=== PATIENT | male | born 1940 | race Caucasian/White ===

== ENCOUNTER 2024-10-16 04:29 | Inpatient (IN) ==
[2024-10-16 06:43] LABS: Activated Partial Thrombo Time 29.7 seconds (26.0-38.0); INR 1.26 (0.85-1.14)
[2024-10-16 06:49] LABS: Hematocrit 25.9 % (38-53); Mean Corpuscular Hemoglobin 22.8 pg (27-33); Mean Corpuscular Hgb Conc 30.8 g/dL (31-36); Mean Corpuscular Volume 74.2 fL (80-97); Red Blood Count 3.49 10^6/uL (4.06-5.63); Red Cell Distribution Width 16.6 % (12-17); White Blood Count 15.6 10^3/uL (3.6-10.2)
[2024-10-16] MEDS: Albuterol/Ipratropium NEB.SOL (2.5/0.5 MG) 3 ML NEB.SOLN INH ONE (06:49)
[2024-10-16 06:58] LABS: High Sens Troponin Baseline 1101 pg/mL (<20)
[2024-10-16 07:23] LABS: Mean Platelet Volume 6.9 fL (7.5-11.2); Platelet Count 653 10^3/uL (150-450)
[2024-10-16 07:24] LABS: ABS Basophils 0.1 10^3/uL (0.0-0.1); ABS Lymphocytes 1.2 10^3/uL (1.0-4.8); ABS Monocytes 0.4 10^3/uL (0.0-1.1); ABS Neutrophils 13.9 10^3/uL (1.5-7.6); ABS Nucleated RBC 0.01 10^3/ul; Eosinophil % 0.1 %; Hypochromasia 2+; Lymphocyte % 7.6 %; Microcytosis 1+
[2024-10-16 07:28] LABS: ALT 9 U/L (7-52); AST 18 U/L (13-39); Albumin 4.3 g/dL (3.5-5.7); Albumin/Globulin Ratio 1.3 (1-3); Alkaline Phosphatase 122 U/L (35-149); Anion Gap 20 mmol/L (2-16); Blood Urea Nitrogen 28 mg/dL (6-24); C Reactive Protein 34.81 mg/L (<8.01); CO2 Carbon Dioxide 19 mmol/L (22-32); Calcium 9.2 mg/dL (8.6-10.3); Chloride 98 mmol/L (101-111); Creatinine, Serum 1.23 mg/dL (0.67-1.17); Globulin 3.3 g/dL (2-4); Glucose 216 mg/dL (70-100); Potassium 4.9 mmol/L (3.5-5.0); Sodium 137 mmol/L (135-145); Total Bilirubin 0.5 mg/dL (0.2-1.0); Total Protein 7.6 g/dL (6.4-8.9); eGFR CKD-EPI 58.6 (>60)
[2024-10-16] MEDS: Iodixanol 320 (CONTRAST) 100 ML SDV IV ONE (08:06)
[2024-10-16 08:11] LABS: High Sensitivity Troponin 1 Hr 1133 pg/mL (<20)
[2024-10-16] MEDS: Vancomycin 1,250 MG in NS 0.9% 250 ml 250 ML IVPB ONE (09:38)
[2024-10-16] MEDS: cefTRIAXone 1 gm/50 mL D5W 1 GM/50 ML BAG IV ONE (10:02)
[2024-10-16 10:15] LABS: % Iron Saturation 3 % (15-55); .Transferrin 411 mg/dL (203-362); Iron < 20 ug/dL (50-212); Total Iron Binding Capacity 575 mcg/dL (250-450); Unsaturated Iron Binding 555 ug/dL
[2024-10-16 10:26] LABS: Cholesterol 152 mg/dL; HDL Cholesterol 30.9 mg/dL; LDL Cholesterol 100 mg/dL; Triglycerides 106 mg/dL
[2024-10-16 10:35] LABS: Ferritin 14.3 ng/mL (24-336)
[2024-10-16 10:46] LABS: High Sensitivity Troponin 3 Hr 913 pg/mL (<20)
[2024-10-16] MEDS ORDERED: Dextrose 50% Syringe 50 ml 25 GM/50 ML SYRINGE IV PUSH PRN (11:00)
[2024-10-16] MEDS ORDERED: Naloxone 0.4 mg VIAL 0.4 mg/ml 1 ml VIAL IV PRN (12:56)
[2024-10-16] MEDS ORDERED: Ondansetron 4 mg VIAL 2 MG/ML 2 ml VIAL IV PRN (12:56)
[2024-10-16] MEDS ORDERED: NS 0.45% 1000 ml BAG 1,000 ML IV SCH (13:00)
[2024-10-16] MEDS ORDERED: Lidocaine 2% PF 5 ML VIAL ONE (13:26)
[2024-10-16] MEDS ORDERED: Propofol 10 MG/ML 20 ML BTL ONE (13:26)
[2024-10-16] MEDS ORDERED: Phenylephrine IV 10 MG/ML 1 ml VIAL ONE (13:44)
[2024-10-16] MEDS: Buffered Lidocaine 1% SYRIN 1 ml INTRADERM ONE (14:28)
[2024-10-16] MEDS: Acetaminophen IV 1 GM/100ML 1,000 MG/100 ML BAG IV ONE (14:28)
[2024-10-16] MEDS: Sulfur Hexaflouride MICROSPHR 25 MG VIAL IV PRN (15:22)
[2024-10-16] MEDS: Lactated Ringers 1000 ml BAG 1,000 ML IV SCH (15:35)
[2024-10-16] MEDS: PEG 3000 GI LAVAGE 1 GALLON PO ONE (16:47)
[2024-10-17 06:57] LABS: Calcium 8.8 mg/dL (8.6-10.3); Creatinine, Serum 1.53 mg/dL (0.67-1.17); Magnesium 2.4 mg/dL (1.9-2.7); Potassium 5.2 mmol/L (3.5-5.0); eGFR CKD-EPI 45.1 (>60)
[2024-10-17 07:04] LABS: Hemoglobin 6.8 g/dL (13.2-16.3); Mean Corpuscular Hemoglobin 23.5 pg (27-33); Mean Corpuscular Hgb Conc 32.5 g/dL (31-36); Mean Corpuscular Volume 72.2 fL (80-97); Mean Platelet Volume 7.2 fL (7.5-11.2); Platelet Count 487 10^3/uL (150-450); Red Blood Count 2.91 10^6/uL (4.06-5.63); Red Cell Distribution Width 17.2 % (12-17); White Blood Count 10.8 10^3/uL (3.6-10.2)
[2024-10-17 07:28] LABS: ABS Lymphocytes 1.1 10^3/uL (1.0-4.8); ABS Monocytes 0.7 10^3/uL (0.0-1.1); ABS Neutrophils 8.9 10^3/uL (1.5-7.6); ABS Nucleated RBC 0.01 10^3/ul; Anisocytosis 1+; Hypochromasia 2+; Lymphocyte % 10.5 %; Microcytosis 2+; Nucleated Red Blood Cells % 0.1 %/100WBC (0.0-0.8)
[2024-10-17] MEDS: Ferric Gluconate IV 250 MG in NS 0.9% 250 ml 200 ML IVPB SCH (08:49)
[2024-10-17] MEDS: cefTRIAXone 1 gm/50 mL D5W 1 GM/50 ML BAG IV SCH (12:09)
[2024-10-17 13:36] LABS: Urine Appearance Clear; Urine Bilirubin Negative (Negative); Urine Blood Negative (Negative); Urine Color Yellow; Urine Glucose 1+ (>=70 mg/dL) (Negative); Urine Ketones Trace (Negative); Urine Nitrite Negative (Negative); Urine Protein Trace (Negative); Urine Specific Gravity 1.041 (1.002-1.030); Urine Urobilinogen Negative (Negative); Urine pH 5.5 (5.0-8.0)
[2024-10-17 14:12] LABS: Urine Bacteria 1+ /HPF (Absent); Urine Red Blood Cell 1+(3-5/hpf) /HPF (0-Trace); Urine Squamous Epithelial Cell Present /HPF (Absent); Urine White Blood Cell Trace(0-5/hpf) /HPF (0-Trace)
[2024-10-17 15:57] LABS: Free T3 2.67 pg/mL (2.5-3.9)
[2024-10-17 15:59] LABS: Free T4 1.21 ng/dL (0.61-1.12)
[2024-10-17 16:01] LABS: TSH Ultra Thyroid Stim Horm 3.65 mcIU/mL (0.34-5.60)
[2024-10-17] MEDS ORDERED: Propofol 10 MG/ML 20 ML BTL ONE (16:37)
[2024-10-17] MEDS ORDERED: Midazolam 2 mg/2 ml VIAL 1 mg/ml 2 ml VIAL (2 mg) ONE (16:37)
[2024-10-17] MEDS ORDERED: Etomidate 20 mg/10 ml 2 MG/ML 10 ml VIAL ONE (16:37)
[2024-10-17] MEDS ORDERED: fentaNYL 100 mcg/2 ml 50 MCG/ML VIAL ONE (16:37)
[2024-10-17 19:27] LABS: Hematocrit 27.4 % (38-53); Hemoglobin 8.3 g/dL (13.2-16.3)
[2024-10-18 07:17] LABS: Hematocrit 24.9 % (38-53); Hemoglobin 8.1 g/dL (13.2-16.3); Mean Corpuscular Hemoglobin 24.5 pg (27-33); Mean Corpuscular Hgb Conc 32.6 g/dL (31-36); Mean Corpuscular Volume 75.2 fL (80-97); Mean Platelet Volume 7.3 fL (7.5-11.2); Platelet Count 401 10^3/uL (150-450); Red Blood Count 3.32 10^6/uL (4.06-5.63); Red Cell Distribution Width 19.3 % (12-17); White Blood Count 13.5 10^3/uL (3.6-10.2)
[2024-10-18 08:09] LABS: Calcium 8.2 mg/dL (8.6-10.3); Creatinine, Serum 1.61 mg/dL (0.67-1.17); Potassium 4.2 mmol/L (3.5-5.0); eGFR CKD-EPI 42.4 (>60)
[2024-10-18 08:23] LABS: Carcinoembryonic Antigen 1.8 ng/mL (0.1-5.0)
[2024-10-18] MEDS: Albuterol/Ipratropium NEB.SOL (2.5/0.5 MG) 3 ML NEB.SOLN INH SCH (11:24)
[2024-10-18] MEDS: Furosemide 40 mg/4 ml IV VIAL IV SLOW PU ONE (12:06)
[2024-10-18] MEDS ORDERED: Albuterol/Ipratropium NEB.SOL (2.5/0.5 MG) 3 ML NEB.SOLN INH PRN (12:38)
[2024-10-18] MEDS: Furosemide 40 mg/4 ml IV VIAL IV ONE (13:28)
[2024-10-18 13:52] LABS: Folate 10.4 ng/mL (5.90-24.80)
[2024-10-19 05:02] LABS: ABS Basophils 0.1 10^3/uL (0.0-0.1); ABS Eosinophils 0.1 10^3/uL (0.0-0.5); ABS Lymphocytes 1.1 10^3/uL (1.0-4.8); ABS Monocytes 0.7 10^3/uL (0.0-1.1); ABS Neutrophils 9.2 10^3/uL (1.5-7.6); ABS Nucleated RBC 0.03 10^3/ul; Eosinophil % 0.8 %; Hematocrit 24.6 % (38-53); Hemoglobin 7.8 g/dL (13.2-16.3); Lymphocyte % 9.8 %; Mean Corpuscular Hemoglobin 23.8 pg (27-33); Mean Corpuscular Hgb Conc 31.5 g/dL (31-36); Mean Corpuscular Volume 75.5 fL (80-97); Mean Platelet Volume 7.4 fL (7.5-11.2); Nucleated Red Blood Cells % 0.3 %/100WBC (0.0-0.8); Platelet Count 398 10^3/uL (150-450); Red Blood Count 3.27 10^6/uL (4.06-5.63); Red Cell Distribution Width 19.3 % (12-17); White Blood Count 11.2 10^3/uL (3.6-10.2)
[2024-10-19 05:29] LABS: Calcium 8.2 mg/dL (8.6-10.3); Creatinine, Serum 1.3 mg/dL (0.67-1.17); Magnesium 2.4 mg/dL (1.9-2.7); Potassium 3.7 mmol/L (3.5-5.0); eGFR CKD-EPI 54.8 (>60)
[2024-10-19] MEDS: Furosemide 40 mg/4 ml IV VIAL IV SLOW PU SCH (09:20)
[2024-10-19] MEDS: Furosemide 40 mg/4 ml IV VIAL IV SLOW PU ONE (09:25)
[2024-10-19] MEDS: Potassium EFFERVES 25 meq TAB PO ONE (11:56)
[2024-10-20] MEDS: Norepinephrine 32MCG/ML D5WBAG 8,000 MCG/250 ML BAG IV SCH (04:20)
[2024-10-20 05:13] LABS: ABS Basophils 0.1 10^3/uL (0.0-0.1); ABS Eosinophils 0.3 10^3/uL (0.0-0.5); ABS Lymphocytes 1.1 10^3/uL (1.0-4.8); ABS Monocytes 0.9 10^3/uL (0.0-1.1); ABS Neutrophils 8.6 10^3/uL (1.5-7.6); ABS Nucleated RBC 0.09 10^3/ul; Eosinophil % 2.3 %; Hematocrit 25.2 % (38-53); Hemoglobin 8.1 g/dL (13.2-16.3); Lymphocyte % 10.1 %; Mean Corpuscular Hemoglobin 24.6 pg (27-33); Mean Corpuscular Hgb Conc 32.3 g/dL (31-36); Mean Corpuscular Volume 76.4 fL (80-97); Mean Platelet Volume 7.7 fL (7.5-11.2); Nucleated Red Blood Cells % 0.9 %/100WBC (0.0-0.8); Platelet Count 379 10^3/uL (150-450); Red Cell Distribution Width 19.1 % (12-17)
[2024-10-20 05:36] LABS: High Sens Troponin Baseline 1305 pg/mL (<20)
[2024-10-20 05:54] LABS: ALT 92 U/L (7-52); Albumin 3.3 g/dL (3.5-5.7); Albumin/Globulin Ratio 1.4 (1-3); Alkaline Phosphatase 98 U/L (35-149); Anion Gap 8 mmol/L (2-16); Blood Urea Nitrogen 52 mg/dL (6-24); CO2 Carbon Dioxide 28 mmol/L (22-32); Calcium 8.2 mg/dL (8.6-10.3); Chloride 99 mmol/L (101-111); Creatinine, Serum 1.59 mg/dL (0.67-1.17); Globulin 2.4 g/dL (2-4); Glucose 158 mg/dL (70-100); Magnesium 2.4 mg/dL (1.9-2.7); Sodium 135 mmol/L (135-145); Total Bilirubin 0.6 mg/dL (0.2-1.0); Total Protein 5.7 g/dL (6.4-8.9); eGFR CKD-EPI 43.1 (>60)
[2024-10-20] MEDS: Ferric Gluconate IV 250 MG in NS 0.9% 250 ml 200 ML IVPB SCH (10:12)
[2024-10-20] MEDS: Cyanocobalamin INJ 1,000 MCG/ML VIAL 1 ML VIAL IM SCH (14:05)
[2024-10-21 08:42] LABS: ABS Basophils 0.1 10^3/uL (0.0-0.1); ABS Eosinophils 0.3 10^3/uL (0.0-0.5); ABS Lymphocytes 1.2 10^3/uL (1.0-4.8); ABS Monocytes 0.8 10^3/uL (0.0-1.1); ABS Neutrophils 7.1 10^3/uL (1.5-7.6); ABS Nucleated RBC 0.03 10^3/ul; Eosinophil % 3.5 %; Hematocrit 27.1 % (38-53); Hemoglobin 8.9 g/dL (13.2-16.3); Lymphocyte % 12.4 %; Mean Corpuscular Hemoglobin 25.3 pg (27-33); Mean Corpuscular Volume 76.8 fL (80-97); Mean Platelet Volume 7.5 fL (7.5-11.2); Nucleated Red Blood Cells % 0.3 %/100WBC (0.0-0.8); Platelet Count 350 10^3/uL (150-450); Red Blood Count 3.53 10^6/uL (4.06-5.63); Red Cell Distribution Width 19.2 % (12-17); White Blood Count 9.5 10^3/uL (3.6-10.2)
[2024-10-21 09:39] LABS: Anion Gap 9 mmol/L (2-16); Blood Urea Nitrogen 35 mg/dL (6-24); CO2 Carbon Dioxide 27 mmol/L (22-32); Calcium 7.9 mg/dL (8.6-10.3); Chloride 100 mmol/L (101-111); Creatinine, Serum 0.95 mg/dL (0.67-1.17); Glucose 175 mg/dL (70-100); Sodium 136 mmol/L (135-145); eGFR CKD-EPI 79.9 (>60)
[2024-10-21] MEDS ORDERED: Sulfur Hexaflouride MICROSPHR 25 MG VIAL IV PRN (10:08)
[2024-10-21 15:38] LABS: Magnesium 2.3 mg/dL (1.9-2.7); Potassium Redraw 4.1 mmol/L (3.5-5.0)
[2024-10-22 06:15] LABS: ABS Basophils 0.1 10^3/uL (0.0-0.1); ABS Eosinophils 0.4 10^3/uL (0.0-0.5); ABS Lymphocytes 1.4 10^3/uL (1.0-4.8); ABS Monocytes 0.9 10^3/uL (0.0-1.1); ABS Nucleated RBC 0.01 10^3/ul; Eosinophil % 4.1 %; Hematocrit 26.9 % (38-53); Hemoglobin 8.8 g/dL (13.2-16.3); Lymphocyte % 14.4 %; Mean Corpuscular Hemoglobin 25.2 pg (27-33); Mean Corpuscular Hgb Conc 32.7 g/dL (31-36); Mean Corpuscular Volume 77.1 fL (80-97); Mean Platelet Volume 7.6 fL (7.5-11.2); Nucleated Red Blood Cells % 0.1 %/100WBC (0.0-0.8); Platelet Count 361 10^3/uL (150-450); Red Blood Count 3.49 10^6/uL (4.06-5.63); Red Cell Distribution Width 19.7 % (12-17); White Blood Count 9.9 10^3/uL (3.6-10.2)
[2024-10-22 06:52] LABS: Calcium 8.1 mg/dL (8.6-10.3); Creatinine, Serum 0.98 mg/dL (0.67-1.17); Magnesium 2.1 mg/dL (1.9-2.7); Phosphorus 2.2 mg/dL (2.5-5.0); Potassium 4.3 mmol/L (3.5-5.0)
[2024-10-22] MEDS: Iohexol 350 (CONTRAST) 500 ML MDV IV ONE (11:23)
[2024-10-23 05:29] LABS: ABS Basophils 0.1 10^3/uL (0.0-0.1); ABS Eosinophils 0.5 10^3/uL (0.0-0.5); ABS Lymphocytes 1.6 10^3/uL (1.0-4.8); ABS Monocytes 0.9 10^3/uL (0.0-1.1); ABS Neutrophils 7.1 10^3/uL (1.5-7.6); ABS Nucleated RBC 0.02 10^3/ul; Eosinophil % 4.8 %; Hematocrit 27.6 % (38-53); Hemoglobin 8.8 g/dL (13.2-16.3); Lymphocyte % 16.1 %; Mean Corpuscular Hemoglobin 24.7 pg (27-33); Mean Corpuscular Hgb Conc 31.9 g/dL (31-36); Mean Corpuscular Volume 77.5 fL (80-97); Mean Platelet Volume 7.9 fL (7.5-11.2); Nucleated Red Blood Cells % 0.2 %/100WBC (0.0-0.8); Platelet Count 303 10^3/uL (150-450); Red Blood Count 3.57 10^6/uL (4.06-5.63); White Blood Count 10.2 10^3/uL (3.6-10.2)
[2024-10-23 05:41] LABS: Creatinine, Serum 0.96 mg/dL (0.67-1.17); Magnesium 2.1 mg/dL (1.9-2.7); Phosphorus 2.2 mg/dL (2.5-5.0); Potassium 4.7 mmol/L (3.5-5.0); eGFR CKD-EPI 78.9 (>60)
[2024-10-23] MEDS: Sodium Phosphate IV 15 MMOL in NS 0.9% 250 ml 250 ML IV ONE (06:03)
[2024-10-23] MEDS ORDERED: VERAPAMIL 2.5 MG/ML 2 ML VIAL ** 5 mg/2 ml ONE (08:03)
[2024-10-23] MEDS ORDERED: fentaNYL 100 mcg/2 ml 50 MCG/ML VIAL ONE (08:03)
[2024-10-23] MEDS ORDERED: Heparin 1,000 UNIT/ML 10 ml (10,000 UNITS) CATHLAB/DIALYSIS ONE (08:03)
[2024-10-23] MEDS ORDERED: Midazolam 5 mg/5 ml VIAL 1 mg/ml 5 ml VIAL (5 mg) ONE (08:03)
[2024-10-23] MEDS ORDERED: Lidocaine 1% MPF 5 ML VIAL ONE (08:03)
[2024-10-23] MEDS ORDERED: Iohexol 350 (CONTRAST) 200 ML MDV IV ONE (08:04)
[2024-10-23] MEDS ORDERED: nitroGLYCERIN DRIP 50,000 MCG/250 ML BTL ONE (08:04)
[2024-10-23] MEDS ORDERED: Heparin 2 UNITS/ML 1000 mls 2,000 ML IV ONE (08:04)
[2024-10-23] MEDS ORDERED: Senna TAB 8.6 mg TAB PO PRN (09:07)
[2024-10-23] MEDS ORDERED: Polyethylene Glycol 3350 17 GM PACKET PO PRN (09:07)
[2024-10-23] MEDS ORDERED: Magnesium Hydroxide LIQ 30 ML UDC PO PRN (09:07)
[2024-10-23] MEDS: NS 0.9% 1000 ml BAG 1,000 ML IV SCH (10:53)
[2024-10-23 16:55] LABS: POC SO2 49 %
[2024-10-23] MEDS: Magnesium Hydroxide LIQ 30 ML UDC PO SCH (21:35)
[2024-10-24 05:20] LABS: ABS Basophils 0.1 10^3/uL (0.0-0.1); ABS Eosinophils 0.5 10^3/uL (0.0-0.5); ABS Lymphocytes 1.6 10^3/uL (1.0-4.8); ABS Monocytes 0.8 10^3/uL (0.0-1.1); ABS Neutrophils 7.2 10^3/uL (1.5-7.6); Eosinophil % 4.9 %; Hematocrit 28.3 % (38-53); Hemoglobin 9.2 g/dL (13.2-16.3); Lymphocyte % 15.3 %; Mean Corpuscular Hemoglobin 25.3 pg (27-33); Mean Corpuscular Hgb Conc 32.5 g/dL (31-36); Mean Corpuscular Volume 77.7 fL (80-97); Mean Platelet Volume 7.9 fL (7.5-11.2); Platelet Count 328 10^3/uL (150-450); Red Blood Count 3.64 10^6/uL (4.06-5.63); White Blood Count 10.2 10^3/uL (3.6-10.2)
[2024-10-24 05:47] LABS: Calcium 8.3 mg/dL (8.6-10.3); Creatinine, Serum 1.01 mg/dL (0.67-1.17); Magnesium 2.4 mg/dL (1.9-2.7); Phosphorus 2.4 mg/dL (2.5-5.0); Potassium 4.9 mmol/L (3.5-5.0); eGFR CKD-EPI 74.3 (>60)
[2024-10-24 07:31] LABS: POC SO2 97 %
[2024-10-24 07:31] LABS: POC SO2 48 %
[2024-10-24] MEDS ORDERED: Sulfur Hexaflouride MICROSPHR 25 MG VIAL IV PRN (08:41)
[2024-10-24] MEDS: Ferric Gluconate IV 250 MG in NS 0.9% 250 ml 200 ML IVPB SCH (19:17)
[2024-10-27 13:56] VITALS: BP 125/56
== END 2024-10-27 16:15 | disposition home health service (06) | DRG 811 ==
LOC: ED 04:29 → SUATTDRO 09:28 → EDHOLD 09:28 → MEDTELE 10:35 → ICU 10-18 12:33 → MEDTELE 10-19 17:20 → ICU 10-20 04:16 → MED 10-24 09:09
PROVIDERS: ADMIT Student in an Organized Health Care Education/Training Program; ATTEND Student in an Organized Health Care Education/Training Program
PROC: O.GIEGD (2024-10-16 12:50)